=== PATIENT | female | born 1975 | race Caucasian/White ===

== ENCOUNTER 2022-09-06 08:21 | Emergency (ER) | payer OTHER | END 2022-09-06 09:33 | disposition left against medical advice (07) | LOC: ERS 08:21 | DX: Z53.21 Procedure and treatment not carried out due to patient leaving prior to being seen by health care provider (principal) ==

== ENCOUNTER 2022-10-13 10:19 | Outpatient (CLI) | payer OTHER | END 2022-10-13 10:20 | disposition home or self-care (01) | LOC: BICRAD 10:19 | PROVIDERS: ATTEND Specialist | DX: M51.16 Intervertebral disc disorders with radiculopathy, lumbar region (principal); M47.26 Other spondylosis with radiculopathy, lumbar region | CPT/HCPCS: 72100 ==

== ENCOUNTER 2022-10-18 09:07 | Outpatient (CLI) | payer OTHER | END 2022-10-18 09:08 | disposition home or self-care (01) | LOC: TBSIIMAG 09:07 | PROVIDERS: ATTEND Specialist | DX: M51.16 Intervertebral disc disorders with radiculopathy, lumbar region (principal); M47.26 Other spondylosis with radiculopathy, lumbar region | CPT/HCPCS: 72148 ==

== ENCOUNTER 2022-11-06 11:36 | Observation (INO) | payer OTHER ==
[2022-11-06 15:23] LABS: #Basophils 0.1 thou/uL (0.0-0.2); #Eosinphils 0.3 thou/uL (0.0-0.7); #Lymphocytes 2.9 thou/uL (1.20-3.40); #Monocytes 0.6 thou/uL (0.11-0.59); #Neutrophils 6.3 thou/uL (1.40-6.50); %Eosinophils 2.8 % (0.0-10.0); %Lymphocytes 28.3 % (21.0-51.0); %Monocytes 5.5 % (0.0-10.0); %Neutrophils 62.5 % (42.0-75.0); Hemoglobin 14.7 g/dL (12.0-16.0); Mean Corpuscular HGB CONC 33.7 g/dL (32.0-36.0); Mean Corpuscular Hemoglobin 30.6 pg (27.0-31.0); Mean Corpuscular Volume 90.9 fl (78.0-98.0); Mean Platelet Volume 7.6 fL (7.4-10.4); Platelet Count 338 10x3/uL (130-400); RBC Distribution Width 13.2 % (11.5-14.5); Red Blood Cell (RBC) Count 4.81 mill/uL (4.20-5.40); White Blood Cell (WBC) Count 10.1 10x3/uL (4.8-10.8)
[2022-11-06 15:30] LABS: BHCG - Serum Negative (NEGATIVE); Pregs Control Background? CLEAR/WHITE (CLR/WHITE); Pregs Control Bar Appear? YES (CONTROL BAR)
[2022-11-06 15:47] LABS: ALT (SGPT) 35 U/L (8-55); AST (SGOT) 26 U/L (5-34); Albumin 4.1 g/dL (3.5-5.0); Alkaline Phosphatase 114 U/L (40-110); Anion Gap 12 mmol/L (10-20); BUN (Urea Nitrogen) 4 mg/dL (7.0-18.7); Bilirubin, Total 0.3 mg/dL (0.2-1.2); Calc. Creatinine Clearance 0 mL/min (70-130); Calcium 10.4 mg/dL (7.8-10.44); Carbon Dioxide 21 mmol/L (22-29); Chloride 108 mmol/L (98-107); Estimated GFR 105; Globulin 3.2 g/dL (2.4-3.5); Glucose 87 mg/dL (70-105); Magnesium 2.1 mg/dL (1.6-2.6); Protein, Total 7.3 g/dL (6.0-8.3); Sodium 137 mmol/L (136-145)
[2022-11-06] MEDS ORDERED: Ondansetron PF 4 MG/2 ML Vial IVP PRN (16:32)
[2022-11-06] MEDS ORDERED: Acetaminophen 325 MG TAB PO PRN (16:32)
[2022-11-06] MEDS ORDERED: HYDROcodone/Acetaminophen 5/325 mg Tablet PO PRN (16:32)
[2022-11-06] MEDS ORDERED: Calcium Carbonate 500 MG ChewTAB PO PRN (16:32)
[2022-11-06] MEDS ORDERED: Senokot S 8.6-50 MG TAB PO PRN (16:32)
[2022-11-06] MEDS ORDERED: Sodium Chloride 0.9% 1,000 ML IV SCH (17:00)
[2022-11-06 17:37] LABS: Troponin I Less than 0.010 ng/mL (< 0.028)
[2022-11-06 21:13] LABS: Troponin I Less than 0.010 ng/mL (< 0.028)
[2022-11-06 22:02] VITALS: BMI 28.1
[2022-11-06] MEDS: Atorvastatin Calcium 40 MG TAB PO SCH (22:34)
[2022-11-06] MEDS: Ketorolac Tromethamine 30 MG/ML VIAL IVP SCH (22:37)
[2022-11-07 04:04] LABS: #Basophils 0.1 thou/uL (0.0-0.2); #Eosinphils 0.3 thou/uL (0.0-0.7); #Lymphocytes 3.4 thou/uL (1.20-3.40); #Monocytes 0.8 thou/uL (0.11-0.59); #Neutrophils 5.2 thou/uL (1.40-6.50); %Basophils 1.2 % (0.0-1.0); %Eosinophils 2.8 % (0.0-10.0); %Lymphocytes 34.9 % (21.0-51.0); %Monocytes 7.7 % (0.0-10.0); %Neutrophils 53.3 % (42.0-75.0); Hemoglobin 13.8 g/dL (12.0-16.0); Mean Corpuscular HGB CONC 34.5 g/dL (32.0-36.0); Mean Corpuscular Hemoglobin 31.5 pg (27.0-31.0); Mean Corpuscular Volume 91.3 fl (78.0-98.0); Mean Platelet Volume 7.6 fL (7.4-10.4); Platelet Count 300 10x3/uL (130-400); RBC Distribution Width 13.2 % (11.5-14.5); Red Blood Cell (RBC) Count 4.38 mill/uL (4.20-5.40); White Blood Cell (WBC) Count 9.8 10x3/uL (4.8-10.8)
[2022-11-07 04:32] LABS: ALT (SGPT) 29 U/L (8-55); AST (SGOT) 20 U/L (5-34); Albumin 3.3 g/dL (3.5-5.0); Alkaline Phosphatase 97 U/L (40-110); Anion Gap 10 mmol/L (10-20); BUN (Urea Nitrogen) 6 mg/dL (7.0-18.7); Bilirubin, Total 0.2 mg/dL (0.2-1.2); Calc. Creatinine Clearance 103 mL/min (70-130); Calcium 10.7 mg/dL (7.8-10.44); Carbon Dioxide 24 mmol/L (22-29); Cardiac Risk 5.9 (Less than 4.5); Chloride 107 mmol/L (98-107); Cholesterol 170 mg/dl (< 200 Desired); Estimated GFR 98; Globulin 2.7 g/dL (2.4-3.5); Glucose 122 mg/dL (70-105); HDL Cholesterol 29 mg/dL (>60 Neg Risk); LDL Cholesterol, Calculated 105 mg/dL; Potassium 3.7 mmol/L (3.5-5.1); Sodium 137 mmol/L (136-145); Triglycerides 180 mg/dL (Less than 150)
[2022-11-07] MEDS: Sodium Chloride 0.9% 1,000 ML IV SCH ×2 (10:22→19:51)
[2022-11-07] MEDS: Aspirin 81 mg Enteric Coated Tablet PO SCH (10:22)
[2022-11-07 18:31] LABS: Amphetamine Not Detected (NotDetected); Barbiturates Screen Not Detected (NotDetected); Benzodiazepine Screen Not Detected (NotDetected); Cocaine Metabolite Screen Not Detected (NotDetected); Methadone Not Detected (NotDetected); Methamphetamine Not Detected (NotDetected); Opiate Screen Not Detected (NotDetected); Oxycodone Screen Not Detected (NotDetected); Phencyclidine (PCP) Not Detected (NotDetected); THC/Cannabinoid Screen Not Detected (NotDetected); Tricyclic Screen Not Detected (NotDetected)
[2022-11-07] MEDS: Atorvastatin Calcium 40 MG TAB PO SCH (19:51)
[2022-11-07] MEDS ORDERED: Morphine 2 MG/ML VIAL SLOW IVP SCH (21:15)
[2022-11-07] MEDS: Ketorolac Tromethamine 30 MG/ML VIAL IVP SCH (22:39)
[2022-11-08] MEDS ORDERED: diphenhydrAMINE 25 MG CAP PO SCH (00:30)
[2022-11-08] MEDS: Sodium Chloride 0.9% 1,000 ML IV SCH (05:57)
[2022-11-08] MEDS: Aspirin 81 mg Enteric Coated Tablet PO SCH (09:41)
[2022-11-08] MEDS ORDERED: Magnevist 469MG/ML 20 ML VIAL ONE (10:02)
[2022-11-08 12:50] VITALS: BP 134/63; TEMP 97.2
== END 2022-11-08 12:40 | disposition left against medical advice (07) ==
LOC: ERS 11:36 → 2NO 16:31
PROVIDERS: ADMIT Internal Medicine; ATTEND Internal Medicine
DX: R55 Syncope and collapse (principal); E83.52 Hypercalcemia; F41.9 Anxiety disorder, unspecified; M19.011 Primary osteoarthritis, right shoulder; G89.11 Acute pain due to trauma; M25.511 Pain in right shoulder; F17.210 Nicotine dependence, cigarettes, uncomplicated; I08.8 Other rheumatic multiple valve diseases; I49.8 Other specified cardiac arrhythmias; E78.5 Hyperlipidemia, unspecified; I65.22 Occlusion and stenosis of left carotid artery; Z53.29 Procedure and treatment not carried out because of patient's decision for other reasons; Z86.73 Personal history of transient ischemic attack (TIA), and cerebral infarction without residual deficits; Z88.5 Allergy status to narcotic agent; Z98.1 Arthrodesis status; Z20.822 Contact with and (suspected) exposure to COVID-19; W10.9XXA Fall (on) (from) unspecified stairs and steps, initial encounter
CPT/HCPCS: 36415; 70450; 70549; 70551; 72125; 80053; 80061; 80306; 83735; 84443; 84484; 84703; 85025; 93005; 93306; 93880; 95712; 95819; 95957; 96374; 96375; A9579; G0378; J1885; J2272; J7050; U0003; U0005

== ENCOUNTER 2023-03-11 12:50 | Emergency (ER) | payer OTHER ==
[2023-03-11 13:11] LABS: #Basophils 0.1 thou/uL (0.0-0.2); #Eosinphils 0.3 thou/uL (0.0-0.7); #Monocytes 0.6 thou/uL (0.11-0.59); #Neutrophils 6.5 thou/uL (1.40-6.50); %Basophils 0.7 % (0.0-1.0); %Eosinophils 2.7 % (0.0-10.0); %Lymphocytes 25.5 % (21.0-51.0); %Monocytes 6.1 % (0.0-10.0); %Neutrophils 64.8 % (42.0-75.0); Hemoglobin 14.7 g/dL (12.0-16.0); Mean Corpuscular HGB CONC 34.1 g/dL (32.0-36.0); Mean Corpuscular Hemoglobin 30.5 pg (27.0-31.0); Mean Corpuscular Volume 89.4 fl (78.0-98.0); Mean Platelet Volume 9.8 fL (7.4-10.4); Platelet Count 309 10x3/uL (130-400); RBC Distribution Width 13.7 % (11.5-14.5); Red Blood Cell (RBC) Count 4.82 mill/uL (4.20-5.40); White Blood Cell (WBC) Count 10.1 10x3/uL (4.8-10.8)
[2023-03-11 13:33] LABS: ALT (SGPT) 19 U/L (8-55); AST (SGOT) 16 U/L (5-34); Albumin 3.9 g/dL (3.5-5.0); Alkaline Phosphatase 101 U/L (40-110); Anion Gap 13 mmol/L (10-20); BUN (Urea Nitrogen) 7 mg/dL (7.0-18.7); Bilirubin, Total 0.3 mg/dL (0.2-1.2); CK (CPK) 30 U/L (29-168); Calc. Creatinine Clearance 0 mL/min (70-130); Carbon Dioxide 19 mmol/L (22-29); Chloride 107 mmol/L (98-107); Estimated GFR 91; Globulin 2.9 g/dL (2.4-3.5); Glucose 117 mg/dL (70-105); Lipase 38 U/L (8-78); Protein, Total 6.8 g/dL (6.0-8.3); Sodium 135 mmol/L (136-145)
== END 2023-03-11 15:26 | disposition home or self-care (01) ==
LOC: ERS 12:50
DX: R07.89 Other chest pain (principal); R55 Syncope and collapse; F17.210 Nicotine dependence, cigarettes, uncomplicated; Z86.73 Personal history of transient ischemic attack (TIA), and cerebral infarction without residual deficits
CPT/HCPCS: 71045; 80053; 82550; 83690; 83880; 84484; 85025; 93005

== ENCOUNTER 2023-07-05 09:33 | Emergency (ER) | payer OTHER, SELFPAY | END 2023-07-05 10:24 | disposition home or self-care (01) | LOC: ERS 09:33 | DX: M25.532 Pain in left wrist (principal); F17.210 Nicotine dependence, cigarettes, uncomplicated; Z86.73 Personal history of transient ischemic attack (TIA), and cerebral infarction without residual deficits ==

== ENCOUNTER 2023-07-26 11:52 | Emergency (ER) | payer SELFPAY ==
[2023-07-26] MEDS ORDERED: Mag-Al 1200 mg/1200 mg/30 ML UDCUP ONE (12:48)
[2023-07-26] MEDS ORDERED: Lidocaine 2% Viscous Solution 10 ML, Aluminum & Magnesium Hydroxide 30 ML SSW SCH (13:00)
[2023-07-26] MEDS ORDERED: Dexamethasone 4 MG TAB ONE (14:11)
== END 2023-07-26 14:16 | disposition home or self-care (01) ==
LOC: ERS 11:52
DX: J02.9 Acute pharyngitis, unspecified (principal); F17.210 Nicotine dependence, cigarettes, uncomplicated; Z86.73 Personal history of transient ischemic attack (TIA), and cerebral infarction without residual deficits
CPT/HCPCS: 87081; 87430; 99283; J8540